=== PATIENT | male | born 1990 | race Two or more races ===

== ENCOUNTER 2022-05-09 07:38 | Emergency (ER) | payer SELFPAY ==
--- NOTE | 2022-05-09 07:42 | PC.NURSE ---
pt ambulatory to restroom without complications to provide UA
--- NOTE | 2022-05-09 07:46 | PC.NURSE ---
UA sent to lab
[2022-05-09 07:49] VITALS: BP 160/74; PULSE 88; RESP 20; TEMP 36.8; O2SAT 100; BMI 27.3
--- NOTE | 2022-05-09 07:54 | PC.NURSE ---
lab reports urine sample spilled in to the bag and they need a recollect to run sample
--- NOTE | 2022-05-09 07:59 | CT_ITS ---
FINAL REPORT CLINICAL HISTORY: lower abd pain FINDINGS: CT OF THE ABDOMEN AND PELVIS WITH CONTRAST Axial CT images of the abdomen and pelvis were obtained after the administration of IV contrast. Coronal reformatted images were also obtained and reviewed.This study was performed with techniques to keep radiation doses as low as reasonably achievable (ALARA). Individualized dose reduction techniques using automated exposure control or adjustment of mA and/or kV according to the patient's size were employed. Abdomen: The lung bases are clear. The heart is normal in size. The liver is mildly fatty infiltrated without evidence of mass or biliary ductal dilatation. The gallbladder is present. The spleen is unremarkable. No adrenal mass is present. The pancreas has an unremarkable appearance. The kidneys are normal, without evidence of mass or hydronephrosis. The aorta is normal in caliber. There is no free fluid or adenopathy. No mass or abnormal fluid collection is seen. There are multiple fluid-filled small bowel loops in a nonspecific pattern. Pelvis: The appendix normal. The urinary bladder is unremarkable. No inflammatory process is seen. There is no evidence of mass or adenopathy. There is no evidence of bowel obstruction. IMPRESSION: Mild fatty infiltrated liver. No acute process. Reviewed, Interpreted and Dictated by Jose Manuel Mercado III, MD Transcribed by Elissa Saldana Authenticated and [facility]
[2022-05-09 08:00] VITALS: BP 144/84; PULSE 85; O2SAT 100
[2022-05-09 08:02] LABS: Basophils # 0.1 K/mm3 (0-0.2); Basophils % 0.9 % (0.1-2.0); Eosinophils # 0.1 K/mm3 (0.0-0.4); Eosinophils % 1.5 % (0.1-12.0); Hematocrit 50.7 % (42.0-52.0); Hemoglobin 17.1 g/dL (14.1-18.0); Lymphocytes # 2.8 K/mm3 (0.7-4.5); Lymphocytes % 29.9 % (10-50); Mean Corpuscular HGB Conc 33.8 g/dL (31.8-35.4); Mean Corpuscular Hemoglobin 30.8 pg (27.0-31.2); Mean Platelet Volume 8.4 fl (7.4-10.4); Monocytes # 0.4 K/mm3 (0.1-1.0); Monocytes % 4.4 % (1.7-9.3); Neutrophils # 5.9 K/mm3 (1.8-7.8); Neutrophils % 63.3 % (37.0-80.0); Platelet Count 257 K/mm3 (142-424); Red Blood Count 5.57 M/mm3 (4.60-6.20); Red Cell Distribution Width 12.8 % (11.5-17.5); White Blood Count 9.2 K/mm3 (4.8-10.8)
[2022-05-09 08:07] LABS: Chloride 100 mmol/L (98-107); Sodium 138 mmol/L (136-145)
[2022-05-09 08:09] LABS: Alanine Aminotransferase 70 U/L (12-78); Aspartate Amino Transferase 39 U/L (17-59); Blood Urea Nitrogen 16 mg/dl (9-20); Creatinine Clearance Estimated 198 mL/min (50-200); Estimated Glomerular Filt Rate 156 ml/min (>60); GFR (African American) 189 ML/MIN (>60)
[2022-05-09 08:10] LABS: Albumin Level 4.7 g/dl (3.5-5.0); Albumin/Globulin Ratio 1.5 (1.1-1.8); Alkaline Phosphatase 84 U/L (38-126); Calcium 9.5 mg/dl (8.4-10.2); Carbon Dioxide 28 mmol/L (22.0-30.0); Globulin 3.1 g/dL (1.3-3.2); Glucose 307 mg/dl (74-100); Lipase 51 U/L (23-300); Total Protein,Serum 7.8 g/dl (6.3-8.2)
[2022-05-09 08:15] VITALS: PULSE 91; O2SAT 99
--- NOTE | 2022-05-09 08:17 | [facility].EDGENADL ---
Discharge Plan Disposition Patient Disposition: Home, Self-Care Condition: Good Referrals Follow up/Referrals: Provider,Referral, [Primary Care Provider] - See instructions Activity Restrictions/Add. Instructions Additional Instructions/Restrictions: You may continue taking [id number]-[id number] paracetamol (acetaminophen or Tylenol) or phce-[id number]-ptwnvcj ibuprofen for pain. You are being provided with a list of physicians available for follow-up of your condition. Please call a physician on this list to arrange a follow-up appointment as soon as possible. Additional instructions for ABDOMINAL PAIN: See your physician as soon as possible for further evaluation. Return immediately if worsening abdominal pain, vomiting, shortness of breath, fever, vomiting of blood or abdominal distention. Clinical Impressions Clinical Impression: Abdominal pain Instructions Patient Instructions: DI for Acute Abdominal Pain Discharge ED Provider: Say Busch General Adult HPI General Chief complaint: Abdominal Pain Stated complaint: Abdominal pain Time Seen by Provider: 05/09/22 08:13 Mode of Arrival: Ambulatory Source of Information: Patient Limitations: No Limitations Description of Symptoms (Recalled from ER Triage Doc. by RN): pt to ed c/o lower abd pain that started x5 days ago. pt reports the pain is dull in nature and is intermittent. pt denies vomiting or diarrhea. History of Present Illness HPI narrative: The patient does not speak [place]. He has a doctor of podiatric medicine who translates for him. He complains of abdominal pain for 6 days. He locates it is diffusely across his lower abdomen and onto his left side. Less bowel movements than normal recently. No vomiting. No fever. No urinary symptoms. No prior abdominal surgeries. He has been taking acetaminophen for the pain. Related Data Allergies Allergy/AdvReac Type Severity Reaction Status Date / Time No Known Allergies Allergy Verified 05/09/22 07:52 [facility] Disclaimer: The information contained in this section may have been updated after the patient was seen, as this information can be updated by other users. Medical History (Updated 05/09/22 @ 09:29 by Say Busch MD) Diabetes Social History Smoking Status: Never smoker ROS Obtained: Yes Systems reviewed as appropriate & no additional complaints except as documented Constitutional Constitutional: Denies fever(s) Gastrointestinal Gastrointestingal: Reports constipation; Denies abdominal pain or vomiting Genitourinary Male Genitourinary: Denies difficulty urinating and Reports flank pain Musculoskeletal Musculoskeletal: Denies numbness Neurologic Neurologic: Denies numbness Physical Exam General General appearance: alert and in no apparent distress Head Head exam: atraumatic and normocephalic Eye Eye exam: Present normal appearance and EOMI ENT ENT exam: Present mucous membranes moist Neck Neck exam: Present normal inspection and trachea midline Chest Chest inspection: Present normal inspection and symmetric chest wall rise Respiratory Respiratory exam: Present normal lung sounds bilaterally; Absent respiratory distress Cardiovascular Cardiovascular exam: Present regular rate, normal rhythm and normal heart sounds Abdominal Exam Abdominal exam: Present soft, tenderness and normal bowel sounds; Absent distention, guarding, rebound or rigidity Abdominal tenderness: Present RLQ and suprapubic Extremities Exam Extremities exam: Present normal inspection Back Exam Back exam: Absent CVA tenderness (R) or CVA tenderness (L) Neurological Exam Neurological exam: Present alert and oriented X3 Psychiatric Psychiatric exam: Present normal affect and normal mood Skin Skin exam: Present warm and dry Medical Decision Making Sandeep Inquiry Pt receiving controlled substance: No Vital Signs: 05/09/22 07:49 05/09/22 08:00 05/09/22 08:15 Temperature 98.2 F Temperature Source Oral Pul
--- NOTE | 2022-05-09 08:31 | PC.NURSE ---
patient returned from radiology; ambulatory to restroom to give another UA
--- NOTE | 2022-05-09 08:35 | PC.NURSE ---
UA sent to lab
[2022-05-09 08:39] LABS: Microscopic, Urine URINE MICROSCOPIC (MICROSCOPIC)
[2022-05-09 08:43] LABS: Appearance,Urine CLEAR (Clear); Bilirubin,Urine Negative (Negative); Blood, Urine Negative (Negative); Color,Urine YELLOW (Yellow); Glucose,Urine (UA) 3+ (Negative); Ketones,Urine Negative (Negative); Leukocyte Esterase,Urine Negative (Negative); Nitrate,Urine Negative (Negative); PH,Urine 5.5 (5.0-8.5); Protein,Urine Negative (Negative); Specific Gravity, Urine <= 1.005 (1.005-1.030); Urobilinogen,Urine 0.2 EU/dl (0.2)
--- NOTE | 2022-05-09 09:06 | PC.NURSE ---
Notified lab of HBA1C add on
[2022-05-09 09:26] LABS: Bacteria,Urine Trace /lpf; WBC,Urine Occasional #/hpf (0-3)
[2022-05-09 09:45] VITALS: BP 140/92; PULSE 72; RESP 20; TEMP 36.8; O2SAT 99
[2022-05-09 09:50] LABS: Hemoglobin A1C 11.8 % (4.0-6.0)
== END 2022-05-09 09:35 | disposition home or self-care (01) ==
PROVIDERS: Emergency Provider Emergency Medicine
DX: R10.9 Unspecified abdominal pain (principal)
CPT/HCPCS: 74177; 80053; 81001; 83036; 83690; 85025; 96374; 99284; Q9967